=== PATIENT | female | born 1950 | race Caucasian/White ===

== ENCOUNTER → 2016-09-04 | Outpatient (CLI) | payer BC ==
[~2016-09-04] MED LIST: ALDACTAZIDE 25/1 TAB PO; CARDURA PO; CELEXA PO; FEMHRT 1/5 TABL1 TAB PO; KCL PO; MIRALAX255 GM PO; NORVASC PO; ZOCOR PO
--- NOTE | ~2016-09-04 | MY11 ---
[facility] A Service of [facility] RADIOLOGY TEXT RESULTS PATIENT: VIJAYA WORRELL LOCATION: [facility] : 54 UNIT #: [id number] AGE: [address]: Polo Leonard MD SEX: F ORDER DR: [id number] [facility] [address] [facility] [place], [place] [address] [id number] O MR#: [id number] Acc #: [id number] NAME: VIJAYA WORRELL. : 1950 SEX: F STUDY DATE/TIME: 09/04/2016 11:20 UNIT: [facility] ROOM: STUDY DESCRIPTION: MY Mammogram Screening Dig Adryan Attending Physician: Polo Leonard M.D. Ordering Physician: Polo Leonard M.D. Primary Care Physician: Lalo Rodriguez Jr., M.D. MEDICAL IMAGING REPORT This report is preliminary unless electronic signature is present EXAM Digital screening mammogram with CAD INDICATION Routine screening. PROCEDURE Bilateral CC and MLO views obtained on a digital mammography unit FDA-approved CAD device utilized. COMPARISON 05/05/2013 FINDINGS Scattered fibroglandular density. There is no dominant mass or suspicious calcification. IMPRESSION Negative screening mammogram. Screening interval in 1 year suggested. Patient's over the age of 40 are entered into a reminder system with target due date for the next mammogram. BIRADS: 1 Negative Dictated by... Nuno Lilly M.D. THIS IS AN ELECTRONICALLY VERIFIED REPORT Nuno Lilly M.D. at 09/09/2016 7:08 AM EED/aa [facility] A Service [facility] RADIOLOGY TEXT RESULTS PATIENT: VIJAYA WORRELL LOCATION: [facility] : 54 UNIT #: [id number] AGE: [address]: Polo Leonard MD SEX: F ORDER DR: TD: 09/08/2016 15:03 JOB #: [id number] MEDICAL IMAGING REPORT COPY
== END | disposition home or self-care (01) ==
LOC: CWCC 10:48
DX: Z12.31 Encounter for screening mammogram for malignant neoplasm of breast (principal)
CPT/HCPCS: G0202